=== PATIENT | male | born 1945 | race Caucasian/White ===

== ENCOUNTER → 2016-08-11 | Outpatient (CLI) | payer BC | END | disposition home or self-care (01) | LOC: CFH 12:33 | PROVIDERS: ATTEND Physician Assistant Surgical | DX: M48.02 Spinal stenosis, cervical region (principal); M50.323 Other cervical disc degeneration at C6-C7 level; M50.123 Cervical disc disorder at C6-C7 level with radiculopathy | CPT/HCPCS: 72141 ==

== ENCOUNTER → 2017-04-28 | Outpatient (CLI) | payer BC | LOC: CFH 07:13 | PROVIDERS: ATTEND Neurological Surgery | DX: M47.12 Other spondylosis with myelopathy, cervical region (principal); M48.02 Spinal stenosis, cervical region; M51.26 Other intervertebral disc displacement, lumbar region; M50.00 Cervical disc disorder with myelopathy, unspecified cervical region; R60.9 Edema, unspecified; Z98.890 Other specified postprocedural states | CPT/HCPCS: 72050; 72141; 72146; 72148 ==

== ENCOUNTER 2019-06-20 06:59 | Outpatient (CLI) | payer BC | END 2019-06-20 23:59 | disposition home or self-care (01) | LOC: CFH 06:59 | PROVIDERS: ATTEND Neurological Surgery | DX: M43.27 Fusion of spine, lumbosacral region (principal); G54.1 Lumbosacral plexus disorders; M25.452 Effusion, left hip; M25.451 Effusion, right hip; N32.3 Diverticulum of bladder | CPT/HCPCS: 72195 ==